=== PATIENT | female | born 1955 | race Caucasian/White ===

== ENCOUNTER 2021-01-14 10:24 | Inpatient (IN) | payer MEDICARE, MEDICAID ==
[2021-01-09 15:22] LABS: CLARITY,URINE CLOUDY (Clear); COLOR,URINE YELLOW (Yellow); UA COLLECTION TYPE CLN CATCH MIDSTREAM
[2021-01-09 15:23] LABS: GLUCOSE, URINE NEGATIVE (Neg); KETONES,URINE NEGATIVE (Neg); LEUKOCYTE ESTERASE ,URINE SMALL (Neg); NITRITES, URINE NEGATIVE (Neg); OCCULT BLOOD,URINE NEGATIVE (Neg); PROTEIN,URINE NEGATIVE (Neg); UROBILINOGEN,URINE 0.2 E.U/dL (0.2-1.0)
[2021-01-09 15:26] LABS: BACTERIA,URINE FEW /HPF (Neg); MUCUS STRANDS FEW /LPF (Neg); RBC,URINE NONE SEEN /HPF (0-2); SQUAMOUS EPITHELIAL CELL,UR MODERATE /LPF (FEW); TRANSITIONAL EPI CELLS,URINE FEW /HPF
[2021-01-09 15:27] LABS: BASOPHILS # (AUTO) 0.1 X10'3 (0-0.2); BASOPHILS % (AUTO) 1.8 % (0-1); EOSINOPHILS # (AUTO) 0.1 X10'3 (0-0.9); EOSINOPHILS % (AUTO) 3.4 % (0-6); LYMPHOCYTES # (AUTO) 1.4 X10'3 (1.1-4.8); LYMPHOCYTES % (AUTO) 49.1 % (21-51); MEAN CORPUSCULAR HGB CONC 33.2 g/dL (33.0-36.5); MEAN CORPUSCULAR VOLUME 87.3 FL (78-98); MEAN PLATELET VOLUME 8.5 FL (7.4-10.4); MONOCYTES # (AUTO) 0.3 X10'3 (0-0.9); MONOCYTES % (AUTO) 9.8 % (2-12); NEUTROPHILS % (AUTO) 35.9 % (42-75); PRE OP HEMATOCRIT 41.6 % (35.0-45.0); PRE OP HEMOGLOBIN 13.8 g/dL (12.0-16.0); PRE OP PLATELET COUNT 188 X10'3 (140-440); RED BLOOD COUNT 4.76 X10'6 (4.20-5.60); RED CELL DISTRIBUTION WIDTH 15.2 % (11.5-14.5)
[2021-01-09 15:53] LABS: ANISOCYTOSIS 1+; PLATELET ESTIMATE NORMAL; TOTAL CELLS COUNTED 100
[2021-01-09 16:05] LABS: ALBUMIN 3.8 G/DL (3.4-5.0); ALKALINE PHOSPHATASE 64 IU/L (46-116); BLOOD UREA NITROGEN 24 MG/DL (7-18); CALCIUM 9.1 MG/DL (8.5-10.1); CHLORIDE 108 MMOL/L (99-107); CREATININE 1.26 MG/DL (0.40-0.90); PRE OP ALT 54 U/L (30-65); PRE OP ANION GAP 8 (8-16); PRE OP AST 34 U/L (10-37); PRE OP BILIRUB, TOTAL 0.7 MG/DL (0.0-1.0); PRE OP GLUCOSE 101 MG/DL (70-104); PRE OP POTASSIUM 4.1 MMOL/L (3.4-5.1); PRE OP SODIUM 144 MMOL/L (135-145); TOTAL CARBON DIOXIDE 28.4 MMOL/L (24-32); TOTAL PROTEIN 7.6 G/DL (6.4-8.2); eGFR 43 ML/MIN
[2021-01-14] VITALS (33 sets, daily range): BP systolic 116–184; BP diastolic 70–107
[~2021-01-14] VITALS: Ht 165.1 cm; Wt 117.9 kg
[2021-01-14 08:12] LABS: MEAN CORPUSCULAR HGB CONC 32.9 g/dL (33.0-36.5); MONOCYTES # (AUTO) 0.3 X10'3 (0-0.9); NEUTROPHILS # (AUTO) 1.2 X10'3 (1.8-7.7); PRE OP HEMOGLOBIN 12.8 g/dL (12.0-16.0); PRE OP PLATELET COUNT 189 X10'3 (140-440)
[2021-01-14 08:14] LABS: BASOPHILS % (AUTO) 1.4 % (0-1); EOSINOPHILS # (AUTO) 0.1 X10'3 (0-0.9); EOSINOPHILS % (AUTO) 4.1 % (0-6); LYMPHOCYTES # (AUTO) 1.5 X10'3 (1.1-4.8); LYMPHOCYTES % (AUTO) 47.5 % (21-51); MEAN CORPUSCULAR HEMOGLOBIN 28.9 PG (27.0-31.0); MEAN CORPUSCULAR VOLUME 87.8 FL (78-98); MONOCYTES % (AUTO) 9.9 % (2-12); NEUTROPHILS % (AUTO) 37.1 % (42-75); RED BLOOD COUNT 4.44 X10'6 (4.20-5.60); RED CELL DISTRIBUTION WIDTH 15.6 % (11.5-14.5)
--- NOTE | 2021-01-14 08:43 | NUR ---
ONCE WAS ON UNIT HE REQUESTED ABX 2 GM ANCEF TO RUN NOW DUE TO UTI LAB RESULTS. WBC 3.2 THIS AM. AWARE. Addendum: 01/14/21 at 0844 by Alyson Sousa RN Amended: Links added.
[~2021-01-14 10:24] MED LIST: ALBU8.5H17 INH; ATOR40TA PO; BUPR450F2 PO; CHOL20004 PO; DET2T PO; DICL50TA6 PO; FENO145T26 PO; FLUT1DIS4 INH; FURO-150 PO; GABA-530 PO; GABA600T13 PO; HYDR-3965 PO; LEVO88TA2 PO; OMEG1CAP45 PO; PANT-47 PO; TIZA4TAB11 PO; TRAZ150T78 PO; albuterol 2.5 MG/3 ML nebule NEB PRN; cefazolin/dext.iso 2gm/50ml 50 ML IV ONE; famotidine 20mg tablet PO ONE; fentaNYL/PF 50MCG/1 ML 2ML syringe IV PRN; hydrALAZINE 20mg/ml inj. IV PRN; labetalol 20mg/4ml (5mg/ml) syringe IV PRN; morphine 2 MG/ML inj. syringe IV PRN; ondansetron/PF 4mg/2ml inj IV PRN; ringers solution, lacted 1,000 ML IV SCH
[2021-01-14] MEDS ORDERED: acetaminophen 325mg tablet PO PRN (10:25)
[2021-01-14] MEDS ORDERED: ondansetron/PF 4mg/2ml inj IV PRN ×2 (10:25→16:25)
[2021-01-14] MEDS ORDERED: tizanidine 4mg tablet PO PRN (10:25)
[2021-01-14] MEDS ORDERED: mag hydrox/Alum hydrox/simeth 30ml oral suspension PO PRN (10:25)
[2021-01-14] MEDS ORDERED: potassium Cl 20 mEq SR tablet PO PRN ×2 (10:25)
[2021-01-14] MEDS ORDERED: potassium Cl 40MEQ/1/2NS 520ml 520 ML IV PRN ×2 (10:25)
[2021-01-14] MEDS ORDERED: magnesium hydroxide 30ml (MOM) UD suspension PO PRN (10:25)
[2021-01-14] MEDS ORDERED: BUPIVAcaine/PF 2.5 mg/ml (0.25%) 30ml vial ONE (10:29)
[2021-01-14] MEDS ORDERED: albuterol 2.5 MG/3 ML nebule NEB PRN (10:35)
[2021-01-14] MEDS ORDERED: labetalol 20mg/4ml (5mg/ml) syringe IV ONE (10:42)
[2021-01-14] MEDS ORDERED: LIDOcaine 1%/PF 5ML 10 MG/ML VIAL ONE (10:42)
[2021-01-14] MEDS ORDERED: neostigmine methylsulfate 1 MG/ML 10ml vial ONE (10:42)
[2021-01-14] MEDS ORDERED: sevoflurane 250ml liquid IH ONE (10:42)
[2021-01-14] MEDS ORDERED: dexamethasone sod phosphate 10mg/ml inj ONE (10:42)
[2021-01-14] MEDS ORDERED: fentaNYL/PF 50MCG/1 ML 2ML syringe ONE (10:47)
[2021-01-14] MEDS ORDERED: midazolam 1 mg/ML 2ml injection ONE (10:48)
[2021-01-14] MEDS ORDERED: rocuronium 10mg/ml inj IV ONE (10:56)
[2021-01-14] MEDS ORDERED: LIDOcaine 2% (20mg/ml) 5ml vial ONE ×2 (10:56)
[2021-01-14] MEDS ORDERED: propofol inj 20 ML IV ONE (10:57)
[2021-01-14] MEDS ORDERED: ondansetron/PF 4mg/2ml inj ONE (10:58)
[2021-01-14] MEDS ORDERED: glycopyrrolate 0.2mg/ml inj ONE (10:58)
[2021-01-14] MEDS ORDERED: hydrALAZINE 20mg/ml inj. IV ONE (11:21)
[2021-01-14] MEDS ORDERED: BUPIVACAINE liposomal/PF 13.3 MG/ML vial IM ONE (12:42)
[2021-01-14] MEDS ORDERED: BUPIVAcaine/PF 2.5mg/ml (0.25%) 10ml vial ONE (12:42)
--- NOTE | 2021-01-14 13:04 | NUR ---
Received from OR via , accompanied by Anesthesiologist DR CALDERON and report given by Anesthesiolgist. PT PRESENTS WITH 20G RIGHT HAND, ABD DRESSING DRY AND INTACT, VSS. Addendum: 01/14/21 at 1320 by June Ponce RN, RN Amended: Links added.
[2021-01-14] MEDS: morphine 4 MG/ML inj SYRINge IV PRN ×3 (14:21→18:24)
[2021-01-14] MEDS ORDERED: HYDROcodone/acetaminophen 10/325mg tab PO PRN (16:25)
[2021-01-14] MEDS ORDERED: HYDROcodone/acetaminophen 5mg/325mg tablet PO PRN (16:25)
[2021-01-14] MEDS ORDERED: morphine 4 MG/ML inj SYRINge IV PRN (16:25)
[2021-01-14] MEDS: albuterol 2.5 MG/3 ML nebule NEB SCH (19:00)
[2021-01-14] MEDS: ringers solution, lacted 1,000 ML IV SCH (19:14)
--- NOTE | 2021-01-14 19:34 | NUR ---
Report called to receiving nurse THALIA VÁSQUEZ RN. Transferred via GURNEY TO ROOM 348B, 2 PT BAGS SENT WITH PT TO ROOM 348B. . Special Issues communicated to receiving nurse. Addendum: 01/14/21 at 2046 by June Ponce RN RN Amended: Links added.
--- NOTE | 2021-01-14 20:15 | NUR ---
PATIENT ADMITTED TO ROOM 348B FROM RECOVERY ROOM AFTER ROBOTIC LAP ASSISTED HERNIA REPAIR. PLACED COMFORTABLE IN BED. VITAL SIGNS MONITORED.
[2021-01-14] MEDS: budesonide 0.5mg/2ml UD nebule IH SCH (21:00)
[2021-01-14] MEDS ORDERED: pantoprazole 40mg Tablet.DR PO SCH (21:00)
[2021-01-14] MEDS: BUPRENORPHINE HCL 450 MCG PO SCH (23:00)
[2021-01-14] MEDS: HYDROcodone/acetaminophen 5mg/325mg tablet PO SCH (23:39)
[2021-01-14] MEDS: docusate sod 100mg capsule PO SCH (23:40)
[2021-01-14] MEDS: gabapentin 300mg capsule PO SCH (23:41)
[2021-01-14] MEDS: atorvastatin 20mg tablet PO SCH (23:41)
[2021-01-14] MEDS: traZODone 50mg tablet PO SCH (23:42)
[2021-01-14] MEDS: heparin, porcine 5000 units/ml vial SQ SCH (23:52)
[2021-01-14] MEDS: K and/or MAG REPLACEMENT MC SCH (23:57)
[2021-01-15] VITALS (9 sets, daily range): BP systolic 136–202; BP diastolic 77–109
[2021-01-15] MEDS: ringers solution, lacted 1,000 ML IV SCH (00:55)
[2021-01-15] MEDS ORDERED: non-formulary drug (Gabapentin 1 TAB) PO SCH (02:00)
[2021-01-15] MEDS: gabapentin 300mg capsule PO SCH ×2 (02:00→20:50)
[2021-01-15 06:22] LABS: BASOPHILS % (AUTO) 0.1 % (0-1); EOSINOPHILS % (AUTO) 0 % (0-6); HEMATOCRIT 39.2 % (35.0-45.0); HEMOGLOBIN 12.9 g/dl (12.0-16.0); LYMPHOCYTES # (AUTO) 0.8 X10'3 (1.1-4.8); LYMPHOCYTES % (AUTO) 11.2 % (21-51); MEAN CORPUSCULAR HEMOGLOBIN 29.1 PG (27.0-31.0); MEAN CORPUSCULAR VOLUME 88.2 FL (78-98); MEAN PLATELET VOLUME 8.5 FL (7.4-10.4); MONOCYTES # (AUTO) 0.5 X10'3 (0-0.9); MONOCYTES % (AUTO) 6.9 % (2-12); NEUTROPHILS # (AUTO) 5.9 X10'3 (1.8-7.7); NEUTROPHILS % (AUTO) 81.8 % (42-75); PLATELET COUNT 198 X10'3 (140-440); RED BLOOD COUNT 4.45 X10'6 (4.20-5.60); RED CELL DISTRIBUTION WIDTH 15.6 % (11.5-14.5); WHITE BLOOD COUNT 7.3 X10'3 (4.5-11.0)
--- NOTE | 2021-01-15 06:30 | NUR ---
Problems reprioritized. Patient report given, questions answered & plan of care reviewed with GLENN DIEGO.
[2021-01-15 06:41] LABS: ALANINE AMINOTRANSFERASE 45 U/L (12-78); ALBUMIN 3.3 G/DL (3.4-5.0); ALBUMIN/GLOBULIN RATIO 0.8 (1.1-1.5); ALKALINE PHOSPHATASE 55 IU/L (46-116); ANION GAP 10 (8-16); ASPARTATE AMINO TRANSFERASE 25 U/L (10-37); BILIRUBIN,TOTAL 0.6 MG/DL (0.1-1.0); BLOOD UREA NITROGEN 15 MG/DL (7-18); BUN/CREATININE RATIO 13.5 (6.6-38.0); CALCIUM 8.5 MG/DL (8.5-10.1); CHLORIDE 111 MMOL/L (99-107); CREATININE 1.11 MG/DL (0.40-0.90); GLUCOSE 122 MG/DL (70-104); SODIUM 146 MMOL/L (135-145); TOTAL CARBON DIOXIDE 24.8 MMOL/L (24-32); TOTAL PROTEIN 7.2 G/DL (6.4-8.2); eGFR 50 ML/MIN
[2021-01-15] MEDS: levoTHYROXINE 88mcg tablet PO SCH (07:24)
[2021-01-15] MEDS: docusate sod 100mg capsule PO SCH ×2 (07:25→20:52)
[2021-01-15] MEDS: HYDROcodone/acetaminophen 5mg/325mg tablet PO SCH ×2 (07:32→20:54)
[2021-01-15] MEDS: heparin, porcine 5000 units/ml vial SQ SCH ×2 (07:35→20:00)
[2021-01-15] MEDS: K and/or MAG REPLACEMENT MC SCH ×3 (08:00→20:00)
[2021-01-15] MEDS: albuterol 2.5 MG/3 ML nebule NEB SCH ×4 (08:04→21:03)
[2021-01-15] MEDS: budesonide 0.5mg/2ml UD nebule IH SCH ×2 (08:04→21:00)
[2021-01-15] MEDS: tolterodine 2mg SR capsule (24hr) PO SCH (08:47)
[2021-01-15] MEDS ORDERED: magnesium 4gm in 100ml NS 100 ML IV PRN (09:10)
[2021-01-15] MEDS ORDERED: magnesium Cl slow-release 64mg tablet PO PRN (09:10)
[2021-01-15] MEDS: CefTRIAXone/D5W-Rocephin 1gm 50 ML IV SCH (09:56)
[2021-01-15] MEDS ORDERED: hydrALAZINE 20mg/ml inj. IV ONE ×2 (11:00→12:25)
[2021-01-15] MEDS: normal saline 1000ml 1,000 ML IV SCH (11:57)
[2021-01-15] MEDS ORDERED: gabapentin 300mg capsule PO SCH (12:00)
[2021-01-15] MEDS: pantoprazole 40 MG vial IV SCH ×2 (12:14→20:51)
--- NOTE | 2021-01-15 12:30 | NUR ---
Dr Guido has seen pt and aware of BP issues and that she is slow to respond and having trouble at times relaying information and at times will get lost in the conversations. She is verbal and when she answers she answers appropriately and appears alert and oriented, she does not necessarily seem confused. Monitoring closely . Dr Sweet rounded as well and aware of her delay in responding at times.
--- NOTE | 2021-01-15 16:11 | NUR ---
PT. REFUSED 1500 SVN. bs CLEAR WITHOUT SOB. STATES SHE DOES NOT NEED TX AT THIS TIME
--- NOTE | 2021-01-15 16:22 | NUR ---
Increased BP with different results on each arm. Dr Guido aware. hydralizine given 2.5hrs ago. New BP L arm 156/111 (was 179/111) R arm 166/91. Called to see if maybe a PO medication could be added.
[2021-01-15] MEDS: hydrALAZINE 20mg/ml inj. IV PRN (18:10)
--- NOTE | 2021-01-15 18:40 | NUR ---
Patient in room [facility]. I have received report from Perla DIEGO and had the opportunity to ask questions and assume patient care.
--- NOTE | 2021-01-15 18:40 | NUR ---
REPORT GIVEN TO LISS RN, PT MORE APPROPRIATE WITH MENTATION THEN PREVIOUSLY. ABLE TO ENGAGE IN MORE CONVERSATION. LISS WILL MONITOR CLOSELY. BP STILL INTERMITTENTLY HIGH, HYDRALIZINE GIVEN PRIOR TO SHIFT CHANGE AND NORCO DUE TO HEADACHE.
[2021-01-15] MEDS: lactobacillus rhamnosus 10,000 MMU CELLS/CAPSULE PO SCH (20:53)
[2021-01-15] MEDS: traZODone 50mg tablet PO SCH (21:00)
[2021-01-15] MEDS: atorvastatin 20mg tablet PO SCH (21:00)
[2021-01-15] MEDS: BUPRENORPHINE HCL 450 MCG PO SCH (23:00)
[2021-01-15] MEDS: amLODIPine 5mg tablet PO SCH (23:34)
[2021-01-16] VITALS: BP 157/69
[2021-01-16] MEDS: normal saline 1000ml 1,000 ML IV SCH ×2 (00:34→13:43)
[2021-01-16 01:15] VITALS: BP 182/102
[2021-01-16] MEDS: gabapentin 300mg capsule PO SCH (01:34)
[2021-01-16] MEDS: hydrALAZINE 20mg/ml inj. IV PRN (01:36)
[2021-01-16 03:30] VITALS: BP 160/85
--- NOTE | 2021-01-16 06:43 | NUR ---
Patient in room [facility]. I have received report from Vandana DIEGO and had the opportunity to ask questions and assume patient care.
--- NOTE | 2021-01-16 06:50 | NUR ---
Problems reprioritized. Patient report given, questions answered & plan of care reviewed with Alina DIEGO.
[2021-01-16] MEDS: budesonide 0.5mg/2ml UD nebule IH SCH (07:32)
[2021-01-16] MEDS: albuterol 2.5 MG/3 ML nebule NEB SCH ×3 (07:32→16:20)
[2021-01-16 08:00] VITALS: BP 146/88
[2021-01-16] MEDS: HYDROcodone/acetaminophen 5mg/325mg tablet PO SCH (08:00)
[2021-01-16] MEDS: K and/or MAG REPLACEMENT MC SCH ×2 (08:00)
[2021-01-16] MEDS: pantoprazole 40 MG vial IV SCH (08:11)
[2021-01-16] MEDS: docusate sod 100mg capsule PO SCH (08:12)
[2021-01-16] MEDS: lactobacillus rhamnosus 10,000 MMU CELLS/CAPSULE PO SCH (08:12)
[2021-01-16] MEDS: tolterodine 2mg SR capsule (24hr) PO SCH (08:13)
[2021-01-16] MEDS: levoTHYROXINE 88mcg tablet PO SCH (08:14)
[2021-01-16] MEDS: amLODIPine 5mg tablet PO SCH (08:14)
[2021-01-16] MEDS: CefTRIAXone/D5W-Rocephin 1gm 50 ML IV SCH (08:15)
[2021-01-16] MEDS: heparin, porcine 5000 units/ml vial SQ SCH (08:15)
[2021-01-16 08:18] LABS: BASOPHILS % (AUTO) 0.4 % (0-1); EOSINOPHILS % (AUTO) 0.2 % (0-6); HEMATOCRIT 38.9 % (35.0-45.0); HEMOGLOBIN 12.8 g/dl (12.0-16.0); LYMPHOCYTES # (AUTO) 1.1 X10'3 (1.1-4.8); LYMPHOCYTES % (AUTO) 19.4 % (21-51); MEAN CORPUSCULAR VOLUME 88.1 FL (78-98); MEAN PLATELET VOLUME 8.8 FL (7.4-10.4); MONOCYTES # (AUTO) 0.4 X10'3 (0-0.9); NEUTROPHILS # (AUTO) 4.3 X10'3 (1.8-7.7); PLATELET COUNT 186 X10'3 (140-440); RED BLOOD COUNT 4.42 X10'6 (4.20-5.60); WHITE BLOOD COUNT 5.9 X10'3 (4.5-11.0)
[2021-01-16 08:54] LABS: ALANINE AMINOTRANSFERASE 40 U/L (12-78); ALBUMIN 3.5 G/DL (3.4-5.0); ALBUMIN/GLOBULIN RATIO 0.9 (1.1-1.5); ALKALINE PHOSPHATASE 51 IU/L (46-116); ANION GAP 11 (8-16); ASPARTATE AMINO TRANSFERASE 24 U/L (10-37); BILIRUBIN,TOTAL 0.7 MG/DL (0.1-1.0); BLOOD UREA NITROGEN 12 MG/DL (7-18); BUN/CREATININE RATIO 12.1 (6.6-38.0); CALCIUM 8.2 MG/DL (8.5-10.1); CHLORIDE 107 MMOL/L (99-107); CREATININE 0.99 MG/DL (0.40-0.90); GLUCOSE 98 MG/DL (70-104); MAGNESIUM 2.3 MG/DL (1.5-2.4); PHOSPHORUS 2.3 MG/DL (2.3-4.5); POTASSIUM 3.5 MMOL/L (3.5-5.1); SODIUM 144 MMOL/L (135-145); TOTAL CARBON DIOXIDE 25.8 MMOL/L (24-32); TOTAL PROTEIN 7.3 G/DL (6.4-8.2); eGFR 57 ML/MIN
[2021-01-16 11:00] VITALS: BP 113/59
--- NOTE | 2021-01-16 13:42 | NUR ---
PAGER ID: [phone] MESSAGE: Kaila Sheth 349B- Dr. Sweet said pt can be DC. Pt wants to know when because her ride is 2hrs away. Thank you. Alina Del Real [phone]
[2021-01-16] MEDS ORDERED: NOR5T PO (15:47)
[2021-01-16] MEDS ORDERED: CEFD300C3 PO (15:47)
[2021-01-16] MEDS ORDERED: LACT1CAP26 PO (15:47)
--- NOTE | 2021-01-16 17:30 | NUR ---
Pt Is A & O x4 and in no apparent distress. Pt verbalizes understanding of ALL DC orders and knows the importance of following up with Dr Sweet. pt has new medications including antibiotics that MUST be taken until gone. pt packed and got ready on her own, has her dentures on her and her cell phone. Family aware of DC orders. pt's IV removed intact. pt wheeled to the front where family picked her up.
== END 2021-01-16 17:33 | disposition home health service (06) | DRG 336 ==
LOC: PAS 10:24 → INTOOBSV 10:25 → UNDOADMOB 10:25 → SUR 3N 10:25 → OBSVTOIN 17:20 → PAS 17:20 → SUR 3N 17:20 → PAS 20:47 → SUR 3N 20:47
PROVIDERS: ADMIT Surgery; ATTEND Internal Medicine
PROC: 0DNU4ZZ Release Omentum, Percutaneous Endoscopic Approach (ICD-10-PCS; 2021-01-14)
PROC: 8E0W4CZ Robotic Assisted Procedure of Trunk Region, Percutaneous Endoscopic Approach (ICD-10-PCS; 2021-01-14)
PROC: 3E0T3BZ Introduction of Anesthetic Agent into Peripheral Nerves and Plexi, Percutaneous Approach (ICD-10-PCS; 2021-01-14)
PROC: 0WUF4JZ Supplement Abdominal Wall with Synthetic Substitute, Percutaneous Endoscopic Approach (ICD-10-PCS; principal; 2021-01-14 10:42)
DX: K46.0 Unspecified abdominal hernia with obstruction, without gangrene (principal); N39.0 Urinary tract infection, site not specified; Z68.41 Body mass index [BMI] 40.0-44.9, adult; Z20.822 Contact with and (suspected) exposure to COVID-19; I12.9 Hypertensive chronic kidney disease with stage 1 through stage 4 chronic kidney disease, or unspecified chronic kidney disease; E03.9 Hypothyroidism, unspecified; M19.90 Unspecified osteoarthritis, unspecified site; E78.00 Pure hypercholesterolemia, unspecified; M79.7 Fibromyalgia; N18.30 Chronic kidney disease, stage 3 unspecified; K21.9 Gastro-esophageal reflux disease without esophagitis; G89.29 Other chronic pain; E66.01 Morbid (severe) obesity due to excess calories; E78.5 Hyperlipidemia, unspecified; J44.9 Chronic obstructive pulmonary disease, unspecified; Z79.899 Other long term (current) drug therapy; Z79.01 Long term (current) use of anticoagulants; Z80.59 Family history of malignant neoplasm of other urinary tract organ; Z82.49 Family history of ischemic heart disease and other diseases of the circulatory system; Z88.2 Allergy status to sulfonamides; Z87.891 Personal history of nicotine dependence
CPT/HCPCS: 36415; 71046; 80053; 81001; 82948; 83735; 84100; 85007; 85025; 87077; 87081; 87088; 87186; 93005; 94060; 94640; 94760; 97161; 97530; A4215; A4618; C1758; C1781; C9113; C9290; G0378; J0360; J0696; J1100; J1644; J2001; J2250; J2270; J2405; J2704; J2710; J3010; J3490; J7030; J7120; J7626; U0003; U0005